=== PATIENT | female | born 1955 | race Hispanic/Latino ===

== ENCOUNTER 2016-09-10 02:51 | Inpatient (IN) | payer MEDICARE, MEDICAID ==
[2016-09-10] MEDS ORDERED: Sodium Chloride 0.9% 500 ML IV ONE (03:22)
[2016-09-10 04:13] LABS: BASO # 0.1 K/uL (0.0-0.2); BASO % 0.5 % (0.0-2.0); EOS % 0.1 % (0.0-4.0); HEMATOCRIT 36.5 % (34.0-47.0); LYMPH # 1.6 K/uL (1.0-4.3); LYMPH % 14.5 % (20.0-40.0); MEAN CORPUSCULAR HEMOGLOBIN 27.6 pg (27.0-31.0); MONO # 0.3 K/uL (0.0-0.8); MONO % 2.9 % (0.0-10.0); RED CELL DISTRIBUTION WIDTH 14.3 % (11.5-14.5); WHITE BLOOD COUNT 10.9 K/uL (4.8-10.8)
[2016-09-10 04:21] LABS: CHLORIDE 82 mmol/L (98-107)
[2016-09-10 04:22] LABS: POTASSIUM 3.6 mmol/L (3.6-5.2); SODIUM 121 mmol/L (132-148)
[2016-09-10 04:24] LABS: ALB/GLOB RATIO 0.8 (1.0-2.1); ALKALINE PHOSPHATASE 75 U/L (38-126); ALT/SGPT 27 U/L (9-52); AST/SGOT 36 U/L (14-36); BILIRUBIN,TOTAL 0.6 mg/dL (0.2-1.3); BLOOD UREA NITROGEN 7 mg/dL (7-17); CARBON DIOXIDE 24 mmol/L (22-30); GFR AFRICAN-AMERICAN > 60; TOTAL PROTEIN 8.8 g/dL (6.3-8.3)
[2016-09-10 04:25] LABS: GLUCOSE,RANDOM 125 mg/dL (65-105)
[2016-09-10 05:02] LABS: URINE BACTERIA FEW (<OCC); URINE BILIRUBIN NEGATIVE (NEGATIVE); URINE BLOOD NEGATIVE (NEGATIVE); URINE COLOR Colorless (YELLOW); URINE GLUCOSE (UA) NORMAL (Normal); URINE KETONE TRACE mg/dL (NEGATIVE); URINE LEUKOCYTE ESTERASE NEG Leu/uL (Negative); URINE PROTEIN NEGATIVE (NEGATIVE); URINE UROBILINOGEN NORMAL mg/dL (0.2-1.0); WBC URINE 3 /hpf (0-5)
--- NOTE | 2016-09-10 05:57 | C.PDOC ---
History Of Present Illness 61 y/o female c/o feeling weak and nauseous since yesterday. Patient states she had a similar episode a few years ago when she had low sodium and had a "heat stroke". Also notes diarrhea which resolved today. Denies abdominal pain, vomiting, or chest pain. Time Seen by Provider: 09/10/16 03:12 Chief Complaint (Nursing): Weakness/Neurological Deficit History Per: Patient History/Exam Limitations: no limitations Onset/Duration Of Symptoms: Days Recent travel outside of the [place]: No Past Medical History Reviewed: Historical Data, Nursing Documentation, Vital Signs Vital Signs: Last Vital Signs Temp 98.5 F 09/10/16 03:03 Pulse 90 09/10/16 03:03 Resp 20 09/10/16 03:03 BP 150/68 09/10/16 03:03 Pulse Ox 96 09/10/16 05:57 - Medical History PMH: Anxiety, HTN, Hyperlipidemia, Hypothyroidism Family History: States: Unknown Family Hx - Social History Hx Alcohol Use: No Hx Substance Use: No - Immunization History Hx Tetanus Toxoid Vaccination: No Hx Influenza Vaccination: No Hx Pneumococcal Vaccination: No Review Of Systems Except As Marked, All Systems Reviewed And Found Negative. Constitutional: Positive for: Weakness. Negative for: Fever, Chills Cardiovascular: Negative for: Chest Pain Respiratory: Negative for: Cough, Shortness of Breath, Wheezing Gastrointestinal: Positive for: Nausea. Negative for: Vomiting, Abdominal Pain Skin: Negative for: Rash Neurological: Negative for: Weakness, Numbness, Headache, Dizziness Physical Exam - Physical Exam Appears: Non-toxic, No Acute Distress Skin: Warm, Dry Head: Atraumatic, Normacephalic Eye(s): bilateral: Normal Inspection, EOMI Nose: Normal Oral Mucosa: Moist Lips: Other (dry) Throat: Normal, No Erythema, No Exudate Neck: Normal ROM, Supple Chest: Symmetrical Cardiovascular: Rhythm Regular Respiratory: Normal Breath Sounds, No Rales, No Rhonchi, No Wheezing Gastrointestinal/Abdominal: Soft, No Tenderness, No Guarding, No Rebound Back: Normal Inspection Extremity: Normal ROM, Capillary Refill (< 2 sec. ) Neurological/Psych: Oriented x3, Normal Speech, Normal Cognition ED Course And Treatment - Laboratory Results Result Diagrams: 09/10/16 04:10 09/10/16 04:10 ECG: Interpreted By Me ECG Rhythm: Sinus Rhythm Rate From EC (bpm) O2 Sat by Pulse Oximetry: 96 (RA) Pulse Ox Interpretation: Normal - CT Scan/US CT Head Other Rad Studies (CT/US): Read By Radiologist, Radiology Report Reviewed CT/US Interpretation: Name: AAYUSH XIONG Age: 61Years F Date: 09/10/2016. Requesting Physician: UNKNOWN : 1955. [facility] Procedure Ordered As Accession Number of Images. CT HEAD WO CT HEAD W O CONTRAST [id number]. Provided Clinical History: Page 1 of 2. EXAM: CT Head Without Intravenous Contrast. CLINICAL HISTORY: 61 years old, female; Pain; Headache; Headache not specified. TECHNIQUE: Axial computed tomography images of the head/brain without intravenous contrast. This CT exam. was performed using one or more of the following dose reduction techniques: automated exposure. control, adjustment of the mA and/or kV according to patient size, and/or use of iterative. reconstruction technique. COMPARISON: No relevant prior studies available. FINDINGS: Brain: Tlwx-gh-viygizgi atrophy. No intracranial hemorrhage. No mass. Few scattered subtle foci. of decreased attenuation within periventricular/subcortical white matter. No definite edema. Ventricles: No hydrocephalus. Bones/joints: No acute fracture. Soft tissues : Unremarkable. Vasculature: Minimal atherosclerotic disease of intracranial arteries. Sinuses: No acute sinusitis. Mastoid air cells: No mastoid effusion. Orbits: Unremarkable as visualized. IMPRESSION: 1. Nonspecific white matter changes. Acute infarction may be CT occult within first 24 hours. If a. focal deficit persists, consider followup CT or MRI for further evaluation. 2. Incidental/non-acute findings are described above. Progress Note: CT head, EKG, bloodwork ordered and reviewed. Treated with IVFs and Zofran. Discussed with Dr. Aguila who agreed upon admission. Disposition - Disposition Disposition: HOME/ ROUTINE Disposition Time: 05:57 Condition: STABLE - Clinical Impression Clinical Impression: Hyponatremia - PA / DIRECTOR HEART / Resident Statement / has reviewed & agrees with the documentation as recorded. - Scribe Statement The provider has reviewed the documentation as recorded by the Scribe Mark Mark All medical record entries made by the Scribe were at my direction and personally dictated by me. I have reviewed the chart and agree that the record accurately reflects my personal performance of the history, physical exam, medical decision making, and the department course for this patient. I have also personally directed, reviewed, and agree with the discharge instructions and disposition.
[2016-09-10 10:44] LABS: T4 10.5 ug/dL (5.5-11.0)
[2016-09-10 10:56] LABS: THYROID STIMULATING HORMONE 2.55 mIU/L (0.46-4.68)
--- NOTE | 2016-09-10 10:59 | CT ---
PROCEDURE: CT HEAD WITHOUT CONTRAST. HISTORY: R/O Bleed COMPARISON: None available. TECHNIQUE: Axial computed tomography images were obtained through the head/brain without intravenous contrast. Radiation dose: Total exam DLP = 875.25 mGy-cm. This CT exam was performed using one or more of the following dose reduction techniques: Automated exposure control, adjustment of the mA and/or kV according to patient size, and/or use of iterative reconstruction technique. FINDINGS: HEMORRHAGE: No acute parenchymal, subarachnoid or extra-axial hemorrhage. BRAIN: No evidence large acute infarct. Mild chronic periventricular white matter ischemic changes with a few scattered chronic bilateral basal nuclei lacunar type infarcts right side more conspicuous and somewhat larger than left. . There is disproportion enlargement of the ventricles compared sulci Vascular calcifications are present. VENTRICLES: There is dilatation of the third and lateral ventricles with normal-appearing 4th ventricle compared the sulci. Findings may represent central volume loss. NPH of could considered only if the clinical triad of dementia, ataxia and incontinence present. Possibility of chronic compensated obstructive hydrocephalus cannot be excluded. CALVARIUM: No acute calvarial fractures. . PARANASAL SINUSES: Frontal sinuses are underpneumatized/ hypoplastic. Remaining visualized paranasal sinuses well-developed. There may be some minimal mucosal thickening within a few ethmoid air cells. No fluid levels seen to suggest sinusitis MASTOID AIR CELLS: Unremarkable as visualized. No inflammatory changes. OTHER FINDINGS: Findings suggesting exophthalmos however clinical correlation with ophthalmologic examination recommended. IMPRESSION: No acute intracranial hemorrhage. No evidence of large infarct. Mild chronic white matter ischemic changes with bilateral basal nuclei lacunar type infarcts. Note that acute infarct may be CT occult within the 1st 24 hours. Focal deficits persist, consist consider followup MRI. Dilatation of 3rd and lateral ventricles with dilatation of the 4th ventricle. Loss findings could be secondary to central volume loss however chronic compensated obstructive hydrocephalus to be excluded. NPH to be considered only if clinical triad of dementia, ataxia and incontinence present. . See above discussion for additional details, findings and recommendations. Findings suggest exophthalmos however clinical correlation with ophthalmologic examination recommended.
--- NOTE | 2016-09-10 11:38 | RAD ---
PROCEDURE: CHEST RADIOGRAPH, 1 VIEW HISTORY: Shortness of breath COMPARISON: 09/10/2016 FINDINGS: LUNGS: Moderate venous congestion. Mild right midlung atelectasis. Mild patchy increased markings at the right lung base. PLEURA: No pneumothorax or pleural fluid seen. CARDIOVASCULAR: Cardiomegaly. OSSEOUS STRUCTURES: Degenerative changes in the spine and shoulders. Foreshortening of the distal left clavicle. VISUALIZED UPPER ABDOMEN: Normal. OTHER FINDINGS: None. IMPRESSION: Moderate venous congestion. Mild right midlung atelectasis. Mild patchy increased markings at the right lung base.
--- NOTE | 2016-09-10 12:09 | CP.PCM.CON ---
History of Present Illness - History of Present Illness History of Present Illness: pt seen and examined, full consult is dictated #[id number] vs sec to thiazide diuretics agree with ns, f/u bmp q 8 hrs check urine na, osm u osm uric acid, cortisol, tsh level Past Patient History - Infectious Disease Hx of Infectious Diseases: None - Past Medical History & Family History Past Medical History?: Yes - Past Social History Smoking Status: Former Smoker - CARDIAC Hx Hypertension: Yes - ENDOCRINE/METABOLIC Hx Hypothyroidism: Yes - MUSCULOSKELETAL/RHEUMATOLOGICAL Hx Falls: No - PSYCHIATRIC Hx Substance Use: No - SURGICAL HISTORY Hx Orthopedic Surgery: Yes (left rotator cuff repair) - ANESTHESIA Hx Anesthesia: Yes Hx Anesthesia Reactions: No Meds Allergies/Adverse Reactions: Allergies Allergy/AdvReac Type Severity Reaction Status Date / Time procaine [From Novocain] AdvReac Verified 09/10/16 03:07 - Medications Medications: Current Medications Aspirin (Ecotrin) 81 mg PO DAILY LEONELA Sodium Chloride (Sodium Chloride 0.9%) 1,000 mls @ 80 mls/hr IV .[id number] LEONELA Levothyroxine Sodium (Synthroid) 50 mcg PO 0630 LEONELA Lorazepam (Ativan) 2 mg PO DAILY LEONELA Rosuvastatin Calcium (Crestor) 5 mg PO HS LEONELA Results - Vital Signs Recent Vital Signs: Last Vital Signs Temp 98.8 F 09/10/16 06:51 Pulse 92 H 09/10/16 06:51 Resp 20 09/10/16 06:51 BP 152/85 H 09/10/16 06:51 Pulse Ox 96 09/10/16 06:51 - Labs Result Diagrams: 09/10/16 04:10 09/10/16 04:10
[2016-09-10] MEDS: Sodium Chloride 0.9% 1,000 ML IV SCH (12:10)
--- NOTE | 2016-09-10 15:42 | CON ---
DATE: 09/10/2016 CHIEF COMPLAINT AND REASON FOR CONSULTATION: The patient referred by Dr. Aguila for evaluation as patient has history of depression, anxiety. The patient has been taking Zoloft and Ativan at home. The patient was admitted here for weakness and nausea. The patient was noted to have very low sodium on admission. Her last sodium was 121. HISTORY OF PRESENT ILLNESS: This is the case of a 61-year-old female with long history of depression, anxiety. The patient has been taking Zoloft as well as Ativan, initially prescribed by Dr. Reis from [facility]. The patient states she has been taking her medication for years; however, patient reports that physically she has been feeling weak and nauseous and that she thought she had a heat stroke. The patient also reports she has been drinking a lot of water and also was taking some diuretics at home. The patient on admission was noted to have very low sodium and admitted for hyponatremia. She states that she has history of depression. She was seen by a psychiatrist when she was in [place] and was given Abilify, which she self- tapered, but now on Zoloft 50 mg daily and also Ativan 2 mg at bedtime to help her anxiety as well as to help her sleep. She has been compliant with her meds. She stated that she has been drinking a lot of water as well as taking diuretics at home. PAST PSYCHIATRIC HISTORY: As stated, history of depression and anxiety on Zoloft and Ativan. MEDICAL HISTORY: As stated, history of thyroid problems, history of hypothyroidism, hyperlipidemia. DRUG AND ALCOHOL HISTORY: Denies any. ALLERGIES: THE PATIENT IS ALLERGIC TO NOVOCAIN. PSYCHOSOCIAL HISTORY: The patient lives in a senior citizen building. She has been disabled secondary to depression. 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 CURRENT MEDICATIONS: The patient is currently on Ativan 2 mg daily, Crestor, Ecotrin, and Synthroid. VITAL SIGNS: Temperature is 98.8, pulse is 92, blood pressure 140/80, respirations 20, oxygen saturation is 96%. IMAGING: The patient had a CAT scan of the head done on admission that showed no acute intracranial hemorrhage or infarct. The patient has dilatation of the 3rd and lateral ventricle with dilatation of 4th ventricle. Those findings could be secondary to extensive volume loss; however, chronic compensated obstructive hydrocephalus to be excluded. NPH to be considered only there is a triad of dementia, ataxia and incontinence. The patient does not have the symptoms. The findings also suggest exophthalmos. However, correlate with clinical correlation. Neurologic exam recommended. 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 REVIEW OF SYSTEMS: GENERAL: The patient is alert and oriented x 3. Very anxious, when seen in her room, and she stated also that she is drinking a lot water and drinking tea. The patient is cooperative. She was asking how long will she stay in the hospital. SKIN: No diaphoresis. HEENT: No headache. No blurring of vision. NECK: Supple. RESPIRATORY: No dyspnea. CARDIOVASCULAR: No chest pain. GASTROINTESTINAL: She is eating better. EXTREMITIES: No tremors. MUSCULOSKELETAL: Feels weak. GENITOURINARY: Not complaining of polyuria. NEUROLOGIC: Alert and oriented x 3. LABORATORY DATA: Review of her labs WBC is 10.9, H and H is 12.4/36.5, sodium is 121, potassium is 3.6, BUN 7, creatinine is 0.5. T4 is 10.5, total T3 is 1.46. UA is few urinary bacteria. MENTAL STATUS EXAMINATION: Elderly female who looks stated age, oriented x 3. Mood is anxious, somatic. Affect is reactive. Speech spontaneous. Thought process coherent. Thought content: No paranoia, no hallucinations. No suicidal or homicidal ideation. Attention and memory seem to be fair. Insight and judgment fair. Impulse control is fair. IMPRESSION: History of recurrent depression and anxiety as well as possible syndrome of inappropriate antidiuretic hormone secretion, probably secondary to her diuretic versus her SSRI. Zoloft can cause SIADH as a side effect. The patient has been taking this for years. PLAN AND RECOMMENDATION: The patient seen, meds reviewed. The patient referred to be seen by a law office receptionist, Dr. Redmond. Psych-herr, I will change her Ativan to 2 mg p.o. daily to 2 mg p.o. at bedtime, which the patient usually takes at home. For now, we will keep patient off of Zoloft. I did discuss with her that because of her low sodium, we will try to keep her off the Zoloft for now. The patient is not depressed, but also states that she just wants for now to keep her Ativan 2 mg at bedtime. Thank you very much for the consult. Chip Huynh MD cc: [id number] TT: 09/10/2016 15:41:14 Confirmation # [id number] Dictation # [id number] wolf FULTON
--- NOTE | 2016-09-10 22:27 | HP ---
The patient is a 61-year-old female with a history of an anxiety disorder and hypothyroidism and hype rtension. The patient comes to the Emergency Room because the patient feels very weak and also was n ervous. The patient stated that she got a similar episode a few years back and was found to have ___ __. Also, the patient stated that she was had a heatstroke. So, the patient got was evaluated in [facility] Emergency Room and the patient was admitted because of abnormal electrolytes ALLERGIES: THE PATIENT HAS NO KNOWN ALLERGIES EXCEPT ____. MEDICATIONS: The patient was medications including levothyroxine, and also the patient was on alpraz olam and Zoloft. SOCIAL HISTORY: No smoking or alcohol abuse. FAMILY HISTORY: No inherited disease. REVIEW OF SYSTEMS: RESPIRATORY: The patient denied any shortness of breath. CARDIOVASCULAR: The patient is having some palpitations at times. GASTROINTESTINAL: No nausea or vomiting. GENITOURINARY: No dysuria. NEUROLOGIC: The patient feels weak. PHYSICAL EXAMINATION: GENERAL: The patient is alert, awake, and oriented x 3. VITAL SIGNS: Has a blood pressure of 115/79, pulse 93, respirations 16, temperature 97.7. NECK: Supple. No JVD. LUNGS: Clear. HEART: Regular rate and rhythm. ABDOMEN: Soft, obese, nontender, no palpable mass. EXTREMITIES: There is no edema. NEUROLOGIC: The patient is alert and awake, has motor and sensory deficit. LABORATORY DATA: The patient had blood tests done. WBC is 10.9, hemoglobin 12.4, hematocrit 37.5 an d platelet is 340. Chemistry: Sodium 121, potassium 3.6, chloride 82, bicarbonate 24, BUN 7, creati nine 0.5, calcium 9, AST 36, ALT 27, alk phos is 75. Troponin is less than 0.012. Albumin 4, 4.8. T4 is 10.5, TSH 2.55 and T3 is 1.46. ADMITTING DIAGNOSES: Severe hyponatremia and an anxiety disorder, so the patient will have a consult with Dr. Redmond, renal, and psychiatric consult with Dr. Huynh. ADDENDUM: The EKG was done and showed a normal sinus rhythm at a rate of 90 and . There was __ ___ appeared to be a prolonged QT. So, we are going to discontinue the Zoloft. Bro Aguila MD cc: [id number] TT: 09/10/2016 22:26:36 wolf
[2016-09-11] MEDS: Sodium Chloride 0.9% 1,000 ML IV SCH ×2 (01:00→14:00)
[2016-09-11] MEDS: Levothyroxine 50 MCG TAB PO SCH (05:32)
[2016-09-11 07:19] LABS: CHLORIDE 97 mmol/L (98-107)
[2016-09-11 07:20] LABS: POTASSIUM 3.3 mmol/L (3.6-5.2); SODIUM 135 mmol/L (132-148)
[2016-09-11 07:22] LABS: CARBON DIOXIDE 29 mmol/L (22-30); GFR AFRICAN-AMERICAN > 60
[2016-09-11 07:23] LABS: BLOOD UREA NITROGEN 11 mg/dL (7-17); CALCIUM 9.1 mg/dl (8.6-10.4); GLUCOSE,RANDOM 91 mg/dL (65-105)
[2016-09-11 07:53] LABS: CORTISOL AM 3.4 ug/dL (4.46-22.7); THYROID STIMULATING HORMONE 3.42 mIU/L (0.46-4.68)
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
[2016-09-11] MEDS ORDERED: Potassium Chloride 20 mEq/15 ml LIQ UD PO ONE (10:00)
--- NOTE | 2016-09-11 10:12 | CP.PCM.PN ---
Subjective - Date & Time of Evaluation Date of Evaluation: 09/11/16 Time of Evaluation: 10:11 - Subjective Subjective: pt seen and examined, follow up consult is dictated #[id number] serum na is 135, d/c ivf add mg level, agree with k+ supplement low serm cortisol, r/o adrenal insufficiency, may need acth stimulation test please request endo consult Objective - Vital Signs/Intake and Output Vital Signs (last 24 hours): Temp Pulse Resp BP Pulse Ox 98.4 F 65 20 110/66 96 09/11/16 07:00 09/11/16 07:00 09/11/16 07:00 09/11/16 07:00 09/11/16 07:00 Intake and Output: 09/11/16 09/11/16 06:59 18:59 Intake Total 960 Balance 960 - Medications Medications: Current Medications Aspirin (Ecotrin) 81 mg PO DAILY LEONELA Atenolol (Tenormin) 50 mg PO DAILY [facility] Last Admin: 09/10/16 18:30 Dose: 50 mg Heparin Sodium (Porcine) (Heparin) 5,000 units SC Q12 LEONELA Sodium Chloride (Sodium Chloride 0.9%) 1,000 mls @ 80 mls/hr IV .[id number] [facility] Last Admin: 09/11/16 01:00 Dose: 80 mls/hr Levothyroxine Sodium (Synthroid) 50 mcg PO 0630 LEONELA Last Admin: 09/11/16 05:32 Dose: 50 mcg Lorazepam (Ativan) 2 mg PO HS [facility] Last Admin: 09/10/16 22:10 Dose: 2 mg Rosuvastatin Calcium (Crestor) 5 mg PO HS [facility] - Labs Labs: 09/11/16 06:58
--- NOTE | 2016-09-11 11:36 | PN ---
DATE: 09/11/2016 The patient is located in room 664, bed A. REQUESTED BY: Dr. Bro Aguila. REASON FOR RENAL CONSULTATION: Hyponatremia, hypokalemia for evaluation. HISTORY OF PRESENT ILLNESS: The patient is a 61-year-old elderly female with history of hypertension , hyperlipidemia, hypothyroidism, anxiety, depression, was admitted with nausea, vomiting, diarrhea a few days prior to the admission and found to have a low serum sodium 121. The patient was started o n IV fluids, normal saline and with improvement of serum sodium today. Denies any complaint, no ches t pain, no palpitations, no fever, no cough, no abdominal pain, no nausea, vomiting, diarrhea. PHYSICAL EXAMINATION: VITAL SIGNS: This morning as follows: Blood pressure 110/66, pulse 65, respirations 20, temperature 98.4, saturation 96%, height 5 feet 1 inch, weight 190 pounds. GENERAL: The patient is a 61-year-old elderly female, well built, well nourished, not in acute distr ess. HEENT: Pupils normal, reactive to light and accommodation. Conjunctivae pink. Sclerae anicteric. Tongue is moist. NECK: Trachea is midline. LUNGS: Symmetric on both sides. Bilateral breath sounds present. Clear on auscultation. CARDIOVASCULAR: [place] at the fifth intercostal space midclavicular line. S1 and S2 audible. No murm ur, no gallop. ABDOMEN: Normal in appearance, soft, tympanic. No guarding, no rigidity. No hepatosplenomegaly. CENTRAL NERVOUS SYSTEM: The patient is alert, awake, oriented x 3, nonfocal on examination. Cranial nerves II-XII grossly intact. Sensory and motor system is within normal limits. EXTREMITIES: No cyanosis, no clubbing, no edema. CURRENT MEDICATIONS: Include as follows: Ativan 2 mg p.o. at bedtime, Crestor 5 mg at bedtime, Ecot rin 81 mg daily, subQ heparin 5000 q. 12 hours, IV fluids, normal saline at 80 mL per hour, Synthroid 50 mcg p.o. daily and Tenormin 50 mg p.o. daily, KCl 40 mEq p.o. x 1 given this morning at 10:00. LABORATORY DATA: Include as follows: As of 09/11/2016, sodium 135, potassium 3.3, chloride 97, CO2 of 29, BUN 11, creatinine 0.6, glucose 91. Uric acid 5 and calcium 9.1 and TSH is 3.42 and serum cor tisol is 3.4. SUMMARY: The patient is a 61-year-old elderly female with a history of hypertension, hypothyroidism, hyperlipidemia and anxiety, who was admitted with nausea, vomiting, diarrhea and low serum sodium, s tarted on IV fluids with improvement in serum sodium and low potassium and now workup has serum corti akshat level 3.4. 1. Hyponatremia, most likely secondary to hypotonic hypovolemic hyponatremia, cannot rule out adrena l insufficiency in the setting of low serum cortisol, doubt syndrome of inappropriate antidiuretic ho rmone. Cannot rule out secondary to thiazide diuretics. Agree with potassium supplement and conside r endocrinology consult prior to the discharge regarding serum cortisol low levels and the patient kiley y need ACTH stimulation test Please request endocrinology consult. Thank you for allowing me to participate in your patient's care and monitor BMP and potassium and add magnesium level also. Marciano Redmond MD cc: [id number] TT: 09/11/2016 11:36:25 Confirmation # [id number] Dictation # [id number] tn
--- NOTE | 2016-09-11 15:59 | PN ---
DATE: 09/11/2016 SUBJECTIVE: The patient is seen. The patient is feeling better today, less anxious. Her last sodiu m level was much better 135, potassium however a little low 3.3. The patient is anxious to be discha rged. The patient is currently taking Ativan 2 mg at bedtime. The patient made aware to monitor for signs and symptoms of serotonin withdrawal as patient has been on Zoloft for many years; such as aspen rrhea, restlessness, insomnia. The patient is not exhibiting any kind of signs or symptoms of seroto rhiannon withdrawal syndrome. VITAL SIGNS: Temperature is 98.4, pulse is 65, blood pressure 110/66, respirations 20, oxygen sats 9 6%. REVIEW OF SYSTEMS: GENERAL: The patient is alert and oriented x 3, seen in her room. SKIN: No diaphoresis. HEENT: No headache, no dizziness. NECK: Supple. RESPIRATORY: No dyspnea. CARDIOVASCULAR: No chest pain. GASTROINTESTINAL: No nausea, no vomiting, no diarrhea. EXTREMITIES: The patient moving extremities. MUSCULOSKELETAL: Weakness, improving. NEUROLOGIC: Alert, oriented x 3. GENITOURINARY: No urinary problems. MENTAL STATUS EXAMINATION: Elderly female who looks stated age, oriented x 3. Speech spontaneous. Affect is reactive. Mood is anxious at times. Thought process coherent. Thought content: No psych osis. No suicidal or homicidal ideation. Attention and memory seem to be fair. Insight and judgmen t fair. Impulse control is fair. IMPRESSION: History of recurrent depression, anxiety as well as hypernatremia. PLAN AND RECOMMENDATIONS: The patient seen, meds reviewed. We will continue Ativan 2 mg at bedtime. We will keep patient off Zoloft for now. Psych herr, the patient is cleared to be discharged to [facility] and to follow up with Dr. Aguila once medically cleared. I did advise the patient to monitor fo r signs and symptoms of serotonin withdrawal as the patient has been on an SSRI for a long time, but patient reports none of them when seen. Chip Huynh MD cc: [phone] TT: 09/11/2016 15:58:46 Confirmation # [id number] Dictation # [id number] jn
--- NOTE | 2016-09-11 22:02 | CARD ---
APPROVED REPORT EKG Measurement Heart [id number] VT [id number] [id number] <Conclusion> Normal sinus rhythm Left axis deviation Prolonged QT Abnormal ECG
--- NOTE | 2016-09-11 22:53 | PN ---
DATE: 09/11/2016 Today, the patient is more alert and awake and denies any shortness of breath, no chest pain, no palp itation. The patient and less weak. PHYSICAL EXAMINATION: VITAL SIGNS: Has a blood pressure of 110/80, pulse rate 55, respiration of 18, temperature 97.8. NECK: Supple. No JVD. LUNGS: Clear. HEART: Regular rate and rhythm. ABDOMEN: Soft, obese, nontender, no palpable mass. EXTREMITIES: There is no edema. LABORATORY DATA: The patient blood work today shows the WBC is 10.9, hemoglobin , hematocrit __ ___, and platelets 340. Sodium 135, potassium 3.3. Chloride 97, bicarbonate 29, BUN 11, creatinine 0.6 and 92 is the glucose. PLAN: Is that we will sodium replacement and potassium replacement. Bro Aguila MD cc: [id number] TT: 09/11/2016 22:53:29 Confirmation # [id number] Dictation # [id number] mn
[2016-09-12] MEDS: Sodium Chloride 0.9% 1,000 ML IV SCH ×2 (01:00→02:52)
[2016-09-12 06:01] LABS: CHLORIDE 95 mmol/L (98-107); POTASSIUM 3.9 mmol/L (3.6-5.2); SODIUM 133 mmol/L (132-148)
[2016-09-12 06:04] LABS: GFR AFRICAN-AMERICAN > 60
[2016-09-12 06:05] LABS: BLOOD UREA NITROGEN 15 mg/dL (7-17); CALCIUM 8.4 mg/dl (8.6-10.4); CARBON DIOXIDE 27 mmol/L (22-30); GLUCOSE,RANDOM 100 mg/dL (65-105)
[2016-09-12] MEDS: Levothyroxine 50 MCG TAB PO SCH (07:51)
[2016-09-12 08:34] LABS: CHLORIDE URINE 72 mmol/L (32-290)
--- NOTE | 2016-09-12 20:36 | PN ---
DATE: 09/12/2016 SUBJECTIVE: Today, the patient is alert and awake, no shortness of breath, no chest pain, no dizzine ss. PHYSICAL EXAMINATION: VITAL SIGNS: The patient has a blood pressure of 135/83, pulse rate is 73, respirations 20, temperat ure 98.6. NECK: Supple. No JVD. LUNGS: Clear. HEART: Regular rate and rhythm. ABDOMEN: Soft and obese. EXTREMITIES: There is no edema. The patient's blood pressure today is 135/83. LABORATORY DATA: Showed sodium 133, potassium 3.9, chloride 95, BUN , creatinine 0.7, calcium 8 .4. PLAN: Continue current medications and possibly discharge in the morning. Bro Aguila MD cc: [id number] TT: 09/12/2016 20:36:07 Confirmation # [id number] Dictation # [id number] mn
[2016-09-13 00:51] VITALS: O2SAT 97
[2016-09-13] MEDS: Sodium Chloride 0.9% 1,000 ML IV SCH ×2 (02:00→05:33)
[2016-09-13] MEDS: Levothyroxine 50 MCG TAB PO SCH (06:32)
[2016-09-13 07:30] LABS: BASO # 0.1 K/uL (0.0-0.2); BASO % 0.7 % (0.0-2.0); EOS # 0.2 K/uL (0.0-0.7); EOS % 2.3 % (0.0-4.0); HEMATOCRIT 34.6 % (34.0-47.0); LYMPH # 2.5 K/uL (1.0-4.3); LYMPH % 26.3 % (20.0-40.0); MEAN CORPUSCULAR HEMOGLOBIN 27.8 pg (27.0-31.0); MEAN CORPUSCULAR HGB CONC 33.3 g/dL (33.0-37.0); MEAN PLATELET VOLUME 8.6 fL (7.2-11.7); MONO # 0.4 K/uL (0.0-0.8); MONO % 4.5 % (0.0-10.0); NRBC % 0.1 % (0.0-2.0); RED CELL DISTRIBUTION WIDTH 14.5 % (11.5-14.5); WHITE BLOOD COUNT 9.4 K/uL (4.8-10.8)
[2016-09-13 07:36] LABS: CHLORIDE 95 mmol/L (98-107); SODIUM 133 mmol/L (132-148)
[2016-09-13 07:37] LABS: POTASSIUM 3.7 mmol/L (3.6-5.2)
[2016-09-13 07:39] LABS: ALB/GLOB RATIO 0.9 (1.0-2.1); ALKALINE PHOSPHATASE 63 U/L (38-126); AST/SGOT 21 U/L (14-36); BILIRUBIN,TOTAL 0.5 mg/dL (0.2-1.3); BLOOD UREA NITROGEN 12 mg/dL (7-17); CALCIUM 7.9 mg/dl (8.6-10.4); CARBON DIOXIDE 27 mmol/L (22-30); GFR AFRICAN-AMERICAN > 60; GLUCOSE,RANDOM 88 mg/dL (65-105); TOTAL PROTEIN 7.5 g/dL (6.3-8.3)
[2016-09-13 07:40] LABS: ALT/SGPT 20 U/L (9-52)
[2016-09-13 07:42] LABS: MEAN CELL VOLUME 83.5 fL (81.0-99.0)
[2016-09-13 08:57] VITALS: BP 118/58; PULSE 80; RESP 18; TEMP 98.4
--- NOTE | 2016-09-13 10:11 | CP.PCM.PN ---
Subjective - Date & Time of Evaluation Date of Evaluation: 09/13/16 Time of Evaluation: 10:11 - Subjective Subjective: pt seen and examined, follow up consult is dictated #[id number] low serum cortisol level, r/o adrenal insufficiency f/u with endo Objective - Vital Signs/Intake and Output Vital Signs (last 24 hours): Temp Pulse Resp BP Pulse Ox 98.4 F 80 18 118/58 L 97 09/13/16 07:40 09/13/16 07:40 09/13/16 07:40 09/13/16 07:40 09/13/16 07:40 Intake and Output: 09/13/16 09/13/16 06:59 18:59 Intake Total 640 Balance 640 - Medications Medications: Current Medications Aspirin (Ecotrin) 81 mg PO DAILY [facility] Last Admin: 09/13/16 09:33 Dose: 81 mg Atenolol (Tenormin) 50 mg PO DAILY [facility] Last Admin: 09/13/16 09:33 Dose: 50 mg Heparin Sodium (Porcine) (Heparin) 5,000 units SC Q12 [facility] Last Admin: 09/13/16 09:33 Dose: Not Given Sodium Chloride (Sodium Chloride 0.9%) 1,000 mls @ 80 mls/hr IV .[id number] [facility] Last Admin: 09/13/16 05:33 Dose: 80 mls/hr Levothyroxine Sodium (Synthroid) 50 mcg PO 0630 [facility] Last Admin: 09/13/16 06:32 Dose: 50 mcg Lorazepam (Ativan) 2 mg PO HS [facility] Last Admin: 09/12/16 22:14 Dose: 2 mg Rosuvastatin Calcium (Crestor) 5 mg PO HS [facility] Last Admin: 09/12/16 22:14 Dose: 5 mg - Labs Labs: 09/13/16 07:14 09/13/16 07:14
--- NOTE | 2016-09-13 12:18 | CP.PCM.PN ---
Subjective - Date & Time of Evaluation Date of Evaluation: 09/13/16 Time of Evaluation: 10:40 - Subjective Subjective: pt seen and examined today , states feels better, denies any chest pain, sob, dizziness, excessive thirst , dysuria vss- stable Na- improved - 133 Objective - Vital Signs/Intake and Output Vital Signs (last 24 hours): Temp Pulse Resp BP Pulse Ox 98.4 F 80 18 118/58 L 97 09/13/16 07:40 09/13/16 07:40 09/13/16 07:40 09/13/16 07:40 09/13/16 07:40 Intake and Output: 09/13/16 09/13/16 06:59 18:59 Intake Total 640 Balance 640 - Medications Medications: Current Medications Aspirin (Ecotrin) 81 mg PO DAILY [facility] Last Admin: 09/13/16 09:33 Dose: 81 mg Atenolol (Tenormin) 50 mg PO DAILY [facility] Last Admin: 09/13/16 09:33 Dose: 50 mg Heparin Sodium (Porcine) (Heparin) 5,000 units SC Q12 [facility] Last Admin: 09/13/16 09:33 Dose: Not Given Sodium Chloride (Sodium Chloride 0.9%) 1,000 mls @ 80 mls/hr IV .[id number] [facility] Last Admin: 09/13/16 05:33 Dose: 80 mls/hr Levothyroxine Sodium (Synthroid) 50 mcg PO 0630 [facility] Last Admin: 09/13/16 06:32 Dose: 50 mcg Lorazepam (Ativan) 2 mg PO [facility] Last Admin: 09/12/16 22:14 Dose: 2 mg Rosuvastatin Calcium (Crestor) 5 mg PO [facility] Last Admin: 09/12/16 22:14 Dose: 5 mg - Labs Labs: 09/13/16 07:14 09/13/16 07:14 - Constitutional Appears: Well, Non-toxic, No Acute Distress - ENT Exam ENT Exam: Mucous Membranes Moist - Respiratory Exam Respiratory Exam: Clear to Ausculation Bilateral, NORMAL BREATHING PATTERN - Cardiovascular Exam Cardiovascular Exam: REGULAR RHYTHM, +S1, +S2 - Neurological Exam Neurological Exam: Alert, Oriented x3 Assessment and Plan - Assessment and Plan (Free Text) Assessment: A/P 61 yr old female admitted for dehydration, hyponatremia Na improved- 133 all other labs WNL seen by Dr. Aguila today ,cleared for discharge home today and f/u with Dr. Aguila office next Further work up will be done as outpt Pt instructed to stop taking zoloft secondary to hyponatremia Pt instructed to returns to ED if symptoms returns
--- NOTE | 2016-09-13 15:52 | PN ---
DATE: 09/13/2016 SUBJECTIVE: The patient is seen, will be going home today. Her sodium level has been stable. The l ast level was 133. The patient also reports no signs and symptoms of serotonin withdrawal symptoms. She is doing well on Ativan 2 mg at bedtime. 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 The patient is anxious to be discharged and doing well, to follow up with Dr. Aguila. VITAL SIGNS: Temperature is 98.4, pulse rate is 80, blood pressure 118/58, respirations 18, oxygen s at is 97% on room air. REVIEW OF SYSTEMS: GENERAL: The patient is alert, oriented x 3, seen in her room, dressing up for discharge. SKIN: No diaphoresis. HEENT: No headache, no dizziness. NECK: Supple. RESPIRATORY: No dyspnea. CARDIOVASCULAR: No chest pain. GASTROINTESTINAL: No nausea, no vomiting. EXTREMITIES: No weakness. NEUROLOGIC: Alert, oriented x 3. GENITOURINARY: No dysuria. MENTAL STATUS EXAMINATION: Elderly female who looks stated age, oriented x 3. Mood is anxious at ti mes. Affect is reactive. Speech spontaneous. Thought process coherent. Thought content: No psych osis. No suicidal or homicidal ideation. Attention and memory seem to be fair. Insight and judgmen t fair. Impulse control is fair. IMPRESSION: History of recurrent depression and anxiety as well as hyponatremia possibly secondary t o syndrome of inappropriate antidiuretic hormone secondary to Zoloft as well. PLAN AND RECOMMENDATIONS: The patient seen, meds reviewed. The patient is stable for discharge to [facility] up with her PMD, Dr. Aguila. The patient to stay away from SSRI in the future as well as to continue Ativan 2 mg at bedtime. Chip Huynh MD cc: [phone] TT: 09/13/2016 15:51:44 Confirmation # [id number] Dictation # [id number]
--- NOTE | 2016-09-13 18:36 | PN ---
DATE: 09/13/2016 HISTORY OF PRESENT ILLNESS: Today, the patient was seen earlier. The patient was alert, awake , oriented x 3 and denied any shortness of breath, no chest pain, no dizziness, no palpitations, no a bdominal pain. PHYSICAL EXAMINATION: VITAL SIGNS: The patient has a blood pressure of 118/68, pulse 80, respirations 18, temperature 98.4 . NECK: Supple, no JVD. LUNGS: Clear. HEART: Regular rate and rhythm. Abdomen is soft, nontender, no palpable mass. EXTREMITIES: There is no edema. LABORATORY DATA: It showed that the WBC is 9.4, hemoglobin 11.5, hematocrit 34.6 and platelet 291. Chemistry reveals that the uric acid is 7.9 and 0.5. ALT is 21, AST , and so albumin is 4 and is 0.9. PLAN: We are going to continue on the medications, but the patient will be added allopurinol. Bro Aguila MD cc: [id number] TT: 09/13/2016 18:36:24 Confirmation # [id number] Dictation # [id number] mn
--- NOTE | 2016-09-13 18:43 | DS ---
The patient is a 61-year-old female with history of major depression, hypothyroidism. The patient ca me to the Emergency Room ____ complaining of generalized weakness and patient was found to have a maurilio y low sodium and after patient had been in [place] for a while. PHYSICAL EXAMINATION: GENERAL: Almost unremarkable except the heart rate was a little faster than usual. NECK: Supple. LUNGS: Clear. HEART: Regular rate and rhythm. ABDOMEN: Soft obese. EXTREMITIES: There is no edema, but the patient is obese. LABORATORY DATA: The first sodium was 121, potassium 2.6, chloride is 82, and bicarbonate is 24, BUN 7, creatinine 0.5. So patient will be admitted to telemetry and have a consult with Dr. Redmond, the ____ physician . The patient has IV fluid. Now the patient is comfortable. The sodium is 134 and patient ____ dis charged home. Bro Aguila MD cc: [id number] TT: 09/13/2016 18:42:22 adelita
--- NOTE | 2016-09-14 00:41 | PN ---
DATE: 09/13/2016 The patient is located in room 664, bed A. REQUESTED BY: Dr. Bro Aguila. REASON FOR RENAL CONSULTATION: Hyponatremia for further evaluation. HISTORY OF PRESENT ILLNESS: The patient is a 61-year-old elderly female with a past medica l history significant for hypertension, hyperlipidemia, anxiety, hypothyroidism, [facility] of nausea, vomiting, and diarrhea for 2-3 days prior to the admission and found to hav e a low serum sodium and the patient was found to have hyponatremia possibly secondary to hypotonic h ypovolemic hyponatremia. Cannot rule out syndrome of inappropriate antidiuretic hormone and started on IV fluid with gradual improvement in the serum sodium. The patient is feeling better, not in acut e distress and denies any headache, dizziness. Denies any chest pain, palpitations. Denies any feve r or cough. No abdominal pain, no nausea, vomiting, diarrhea. PHYSICAL EXAMINATION: VITAL SIGNS: This morning as follows: Blood pressure 118/58, pulse 80, respirations 18, temperature 98.4, saturation 97%, height 5 feet 1 inch and weight is 190 pounds. GENERAL: The patient is a 61-year-old elderly obese female, well built, well nourished, not in acute distress. HEENT: Pupils normal, reactive to light and accommodation. Conjunctivae pink. Sclerae anicteric. Tongue is moist. NECK: Trachea is midline. LUNGS: Symmetric on both sides. Bilateral breath sounds present. Clear on auscultation. CARDIOVASCULAR: [place] in the fifth intercostal space midclavicular line. S1 and S2 audible. No murm ur, no gallop. ABDOMEN: Normal in appearance, slightly protuberant, soft, tympanic. No guarding, no rigidity. No hepatosplenomegaly. CENTRAL NERVOUS SYSTEM: The patient is alert, awake, oriented x 3, anxious. Cranial nerves II-XII g rossly intact. Sensory and motor system is within normal limits. EXTREMITIES: No cyanosis, no clubbing, no edema. CURRENT MEDICATIONS: Include as follows: Ativan 2 mg p.o. q. at bedtime, Crestor 5 mg at bedtime, E cotrin 81 mg daily, subcutaneous heparin 5000 q. 12 hours and IV fluids normal saline at 80 mL per ho ur, Synthroid 50 mcg p.o. in the morning and atenolol 50 mg p.o. daily. LABORATORY DATA: Include as follows: As of 09/13/2016, WBC 9.4, hemoglobin 11.5, hematocrit is 34.6 , platelets 291. Sodium 133, potassium 3.7, chloride 95, CO2 of 27, BUN 12, creatinine 0.5, glucose 88, calcium 7.9, total bili 0.5, AST 21, ALT 20, alkaline phosphatase 63, total protein 7.5, albumin is 3.5. TSH is 3.4 and serum cortisol is 3.4. SUMMARY: The patient is a 61-year-old elderly obese female with a history of hypertension, hypothyroidism, hyperlipidemia, anxiety, depression who was on atenolol chlorthalidone and , wh o was admitted with nausea, vomiting, abdominal discomfort and diarrhea 2-3 days prior to the admissi on with a low serum sodium. 1. Hyponatremia, most likely secondary to hypotonic hypovolemic hyponatremia secondary to gastrointe stinal loss, cannot rule out secondary to diuretic induced hyponatremia versus SIADH. Serum so dium improved gradually with normal saline IV fluids. Workup showed a low serum cortisol level, alphonso ot rule out cortisol deficiency. 2. Hypertension. Blood pressure is stable. 3. Hypothyroidism. TSH is within normal limits. Continue Synthroid and follow with endocrinology f or evaluation of the adrenal insufficiency. Discuss the case with nurse practitioner in rounds and a lso with Dr. Aguila in rounds. Thank you for allowing me to participate in your patient's care. Follow with endocrinology. Marciano Redmond MD cc: [phone] TT: 09/14/2016 00:41:06 Confirmation # [id number] Dictation # [id number] mn
== END 2016-09-13 14:00 | disposition home or self-care (01) | DRG 641 ==
LOC: C.ER 02:51 → C.3T 05:57 → OBSVTOIN 17:20 → C.6T 19:06
PROVIDERS: ADMIT Specialist; ATTEND Specialist
DX: E87.1 Hypo-osmolality and hyponatremia (principal); E86.0 Dehydration; F33.9 Major depressive disorder, recurrent, unspecified; I10 Essential (primary) hypertension; E03.9 Hypothyroidism, unspecified; E78.5 Hyperlipidemia, unspecified; T50.2X5A Adverse effect of carbonic-anhydrase inhibitors, benzothiadiazides and other diuretics, initial encounter; F41.9 Anxiety disorder, unspecified; Z79.899 Other long term (current) drug therapy; Z86.73 Personal history of transient ischemic attack (TIA), and cerebral infarction without residual deficits; Z87.891 Personal history of nicotine dependence

== ENCOUNTER 2017-06-17 03:04 | Emergency (ER) | payer MEDICAID, MEDICARE ==
--- NOTE | 2017-06-17 04:04 | C.PDOC ---
History Of Present Illness Patient presents to the ER with a complaint of feeling anxious and palpitation while watching TV. Patient called 911 and took an extradose of her blood pressure medication and lorazepam, which helped her feel better. However, before going to bed patient began feeling anxious again so she decided come in to be evaluated. Denies fever, chills, chest pain, or SOB. Time Seen by Provider: 06/17/17 04:04 Chief Complaint (Nursing): High Blood Pressure History Per: Patient History/Exam Limitations: no limitations Onset/Duration Of Symptoms: Hrs Current Symptoms Are (Timing): Still Present Associated Symptoms: denies: Chest Pain Quality Of Symptoms: Rapid Heart Rate Severity: Mild Pain Scale Rating Of: 3 Exacerbating Factor(s): Pos: None Recent travel outside of the [place]: No Past Medical History Reviewed: Historical Data, Nursing Documentation, Vital Signs Vital Signs: Last Vital Signs Temp 98.3 F 06/17/17 03:13 Pulse 74 06/17/17 03:13 Resp 18 06/17/17 03:13 BP 171/85 H 06/17/17 03:13 Pulse Ox 97 06/17/17 04:56 - Medical History PMH: Anxiety, HTN, Hyperlipidemia, Hypothyroidism Family History: States: No Known Family Hx - Social History Hx Alcohol Use: No Hx Substance Use: No - Immunization History Hx Tetanus Toxoid Vaccination: No Hx Influenza Vaccination: No Hx Pneumococcal Vaccination: No Review Of Systems Constitutional: Negative for: Fever, Chills Cardiovascular: Positive for: Palpitations. Negative for: Chest Pain Respiratory: Negative for: Shortness of Breath Gastrointestinal: Negative for: Nausea, Vomiting Psych: Positive for: Anxiety Physical Exam - Physical Exam Appears: Non-toxic Skin: Warm, Dry Head: Normacephalic Oral Mucosa: Moist Chest: Symmetrical, No Tenderness Cardiovascular: Rhythm Regular Respiratory: No Rales, No Rhonchi, No Wheezing Gastrointestinal/Abdominal: Soft, No Tenderness Neurological/Psych: Oriented x3 ED Course And Treatment - Laboratory Results Result Diagrams: 06/17/17 04:43 06/17/17 04:43 ECG: Interpreted By Me, Viewed By Me ECG Rhythm: Sinus Rhythm (72), Nonspecific Changes O2 Sat by Pulse Oximetry: 97 (Room air) Pulse Ox Interpretation: Normal - Radiology CXR: Interpreted by Me, Viewed By Me CXR Interpretation: No: Infiltrates, Fracture, Pnemothorax Progress Note: Blood work, EKG, CXR, and urinalysis ordered. Reevaluation Time: 05:14 Reassessment Condition: Improved Disposition Counseled Patient/Family Regarding: Studies Performed, Diagnosis, Need For Followup - Disposition Referrals: Bro Aguila MD [Staff Provider] - Disposition: HOME/ ROUTINE Disposition Time: 04:04 Condition: FAIR Instructions: Anxiety, Adult (DC) Forms: [employer]aton (Uzbek) - Clinical Impression Clinical Impression: Anxiety - Scribe Statement The provider has reviewed the documentation as recorded by the Scribdelvin Anand All medical record entries made by the Scribe were at my direction and personally dictated by me. I have reviewed the chart and agree that the record accurately reflects my personal performance of the history, physical exam, medical decision making, and the department course for this patient. I have also personally directed, reviewed, and agree with the discharge instructions and disposition.
[2017-06-17 04:48] LABS: BASO # 0.1 K/uL (0.0-0.2); BASO % 1.1 % (0.0-2.0); EOS # 0.1 K/uL (0.0-0.7); EOS % 1.1 % (0.0-4.0); HEMOGLOBIN 12.9 g/dL (11.0-16.0); LYMPH # 1.8 K/uL (1.0-4.3); LYMPH % 17.3 % (20.0-40.0); MEAN CORPUSCULAR HEMOGLOBIN 27.5 pg (27.0-31.0); MEAN CORPUSCULAR HGB CONC 33.2 g/dL (33.0-37.0); MEAN PLATELET VOLUME 8.2 fL (7.2-11.7); MONO # 0.4 K/uL (0.0-0.8); MONO % 3.6 % (0.0-10.0); NEUT # 7.9 K/uL (1.8-7.0); NEUT % 76.9 % (50.0-75.0); RBC 4.67 Mil/uL (3.80-5.20); RED CELL DISTRIBUTION WIDTH 14.3 % (11.5-14.5); WHITE BLOOD COUNT 10.2 K/uL (4.8-10.8)
[2017-06-17 04:52] LABS: INR 1.1; PROTHROMBIN TIME 12.2 SECONDS (9.7-12.2)
[2017-06-17 04:58] LABS: ALB/GLOB RATIO 0.8 (1.0-2.1); ALT/SGPT 21 U/L (9-52); AST/SGOT 25 U/L (14-36); BLOOD UREA NITROGEN 11 mg/dL (7-17); CALCIUM 9.2 mg/dl (8.6-10.4); GFR AFRICAN-AMERICAN > 60; GFR NON-AFRICAN AMERICAN > 60
[2017-06-17 05:42] VITALS: BP 137/73; PULSE 69; RESP 20; TEMP 97.7; O2SAT 96
--- NOTE | 2017-06-17 08:07 | RAD ---
Chest x-ray single frontal view History: Shortness of breath. Comparison: 09/10/2016 Findings: Mild venous congestion. Top normal heart size. Degenerative changes in the spine and shoulders. Impression: Mild venous congestion.
--- NOTE | 2017-06-17 11:06 | CARD ---
APPROVED REPORT EKG Measurement Heart [id number] ME 152P38 [id number] <Conclusion> Normal sinus rhythm Left axis deviation Abnormal ECG
== END 2017-06-17 05:41 | disposition home or self-care (01) ==
LOC: C.ER 03:04
DX: F41.9 Anxiety disorder, unspecified (principal); I10 Essential (primary) hypertension; E78.5 Hyperlipidemia, unspecified; Z87.891 Personal history of nicotine dependence

== ENCOUNTER 2017-12-17 16:16 | Emergency (ER) | payer MEDICARE ==
--- NOTE | 2017-12-17 17:09 | RAD ---
Date of service: 12/17/2017 PROCEDURE: CHEST RADIOGRAPH, 1 VIEW HISTORY: SOB COMPARISON: 06/17/2017 FINDINGS: LUNGS: Clear. PLEURA: No pneumothorax or pleural fluid seen. CARDIOVASCULAR: No radiographic findings to suggest acute or significant cardiovascular disease. OSSEOUS STRUCTURES: No significant abnormalities. VISUALIZED UPPER ABDOMEN: Normal. OTHER FINDINGS: None. IMPRESSION: No active disease.No significant interval change compared to the prior examination(s).
[2017-12-17 17:13] LABS: BLOOD UREA NITROGEN 13 mg/dL (7-17); CALCIUM 9.6 mg/dl (8.6-10.4); GFR NON-AFRICAN AMERICAN > 60
[2017-12-17 17:14] LABS: ALB/GLOB RATIO 0.9 (1.0-2.1); ALBUMIN 4.4 g/dL (3.5-5.0); ALT/SGPT 20 U/L (9-52); AST/SGOT 39 U/L (14-36); BASO # 0.1 K/uL (0.0-0.2); BASO % 0.8 % (0.0-2.0); EOS # 0.1 K/uL (0.0-0.7); EOS % 0.7 % (0.0-4.0); HEMOGLOBIN 13.7 g/dL (11.0-16.0); LYMPH # 1.7 K/uL (1.0-4.3); LYMPH % 17.4 % (20.0-40.0); MEAN CELL VOLUME 82.4 fL (81.0-99.0); MEAN CORPUSCULAR HEMOGLOBIN 27.6 pg (27.0-31.0); MEAN CORPUSCULAR HGB CONC 33.5 g/dL (33.0-37.0); MEAN PLATELET VOLUME 8.5 fL (7.2-11.7); MONO # 0.4 K/uL (0.0-0.8); MONO % 4.3 % (0.0-10.0); NEUT # 7.4 K/uL (1.8-7.0); NEUT % 76.8 % (50.0-75.0); RBC 4.97 Mil/uL (3.80-5.20); RED CELL DISTRIBUTION WIDTH 13.9 % (11.5-14.5); WHITE BLOOD COUNT 9.6 K/uL (4.8-10.8)
[2017-12-17 18:15] LABS: SQUAMOUS EPITHIAL 2 /hpf (0-5); URINE BACTERIA MANY (<OCC); URINE BILIRUBIN NEGATIVE (NEGATIVE); URINE BLOOD NEGATIVE (NEGATIVE); URINE CLARITY Clear (Clear); URINE COLOR Straw (YELLOW); URINE GLUCOSE (UA) NORMAL (Normal); URINE LEUKOCYTE ESTERASE 1+ Leu/uL (Negative); URINE PROTEIN NEGATIVE (NEGATIVE); URINE UROBILINOGEN NORMAL mg/dL (0.2-1.0)
[2017-12-17 18:46] LABS: BARBITURATES, UR NEGATIVE (NEGATIVE); BENZODIAZEPINES, UR NEGATIVE (NEGATIVE); OPIATES, UR NEGATIVE (NEGATIVE); PHENCYCLIDINE, UR NEGATIVE (NEGATIVE)
--- NOTE | 2017-12-17 18:48 | C.PDOC ---
History Of Present Illness 62 y/o female, w/PMhx of anxiety presents to the ER complaining of occasional palpitations. Patient states that this is not consistent with her history of anxiety. Patient reports that she usually takes Ativan 0.5 mg QD or BID. Denies history of ETOH and other substance abuse. Time Seen by Provider: 12/17/17 16:36 Chief Complaint (Nursing): Palpitations History Per: Patient History/Exam Limitations: no limitations Onset/Duration Of Symptoms: Days Current Symptoms Are (Timing): Still Present Severity: Moderate Past Medical History Reviewed: Historical Data, Nursing Documentation, Vital Signs Vital Signs: Last Vital Signs Temp 98.4 F 12/17/17 16:23 Pulse 94 H 12/17/17 18:35 Resp 20 12/17/17 18:35 BP 151/94 H 12/17/17 18:35 Pulse Ox 96 12/17/17 18:35 - Medical History PMH: Anxiety, HTN, Hyperlipidemia, Hypothyroidism Other Surgeries: Hx of surgeries Family History: States: No Known Family Hx - Social History Hx Alcohol Use: No Hx Substance Use: No - Immunization History Hx Tetanus Toxoid Vaccination: No Hx Influenza Vaccination: No Hx Pneumococcal Vaccination: No Review Of Systems Except As Marked, All Systems Reviewed And Found Negative. Constitutional: Negative for: Fever, Chills Cardiovascular: Positive for: Palpitations. Negative for: Chest Pain Respiratory: Negative for: Shortness of Breath Physical Exam - Physical Exam Appears: Non-toxic, No Acute Distress, Other (obese white female, odd effect) Skin: Normal Color, Warm, Dry Head: Atraumatic, Normacephalic Eye(s): bilateral: Normal Inspection Nose: Normal Oral Mucosa: Moist Neck: Supple Cardiovascular: Rhythm Irregular (tachycardiac) Respiratory: Normal Breath Sounds, No Rales, No Rhonchi, No Wheezing Gastrointestinal/Abdominal: Normal Exam, Soft, No Tenderness, No Guarding, No Rebound Extremity: Normal ROM, No Pedal Edema Neurological/Psych: Oriented x3, Normal Speech ED Course And Treatment - Laboratory Results Result Diagrams: 12/17/17 16:57 12/17/17 16:57 Lab Interpretation: Abnormal (QHCG 576 H) ECG: Interpreted By Vt ECG Rhythm: Sinus Tachycardia ECG Interpretation: Normal Rate From EC O2 Sat by Pulse Oximetry: 96 (RA) Pulse Ox Interpretation: Normal - Radiology CXR: Interpreted by Me CXR Interpretation: Yes: No Acute Disease Reevaluation Time: 19:42 Reassessment Condition: Improved Medical Decision Making Medical Decision Making: Plan: --Labs --UA --CT -Angio Chest --Ativan PO --Lopressor PO HR controlled with lopressor and Ativan suspect benzo w/d or anxiety d-dimer elevated, CTA for PE study NEG Disposition Doctor Will See Patient In The: Office Counseled Patient/Family Regarding: Studies Performed, Diagnosis - Disposition Disposition: HOME/ ROUTINE Disposition Time: 19:43 Condition: GOOD Forms: [employer] (Albanian) - Clinical Impression Clinical Impression: Anxiety, Benzodiazepine withdrawal - Scribe Statement The provider has reviewed the documentation as recorded by the Nick Ramos Provider Attestation: All medical record entries made by the Floresibe were at my direction and personally dictated by me. I have reviewed the chart and agree that the record accurately reflects my personal performance of the history, physical exam, medical decision making, and the department course for this patient. I have also personally directed, reviewed, and agree with the discharge instructions and disposition.
[2017-12-17] MEDS ORDERED: Iodixanol 320 MG/ML 100 ML BOTTLE IV ONE (18:52)
[2017-12-17 19:42] VITALS: BP 155/89; PULSE 92; RESP 24
[2017-12-17 19:43] VITALS: O2SAT 96
[2017-12-17 19:52] VITALS: TEMP 99.3
--- NOTE | 2017-12-18 11:07 | CT ---
Date of service: 12/17/2017 PROCEDURE: CT Chest with contrast (Pulmonary Angiogram) HISTORY: tachy, elev d-dimer COMPARISON: Correlation made with chest radiograph earlier same day. TECHNIQUE: Contiguous helical/transaxial computed tomography images were obtained of the chest in the pulmonary arterial phase of enhancement. Coronal and sagittal reformatted images were created and reviewed. Intravenous contrast dose: 100 cc Visipaque 320 Radiation dose: Total exam DLP = 438.11 mGy-cm. This CT exam was performed using one or more of the following dose reduction techniques: Automated exposure control, adjustment of the mA and/or kV according to patient size, and/or use of iterative reconstruction technique... FINDINGS: PULMONARY ARTERIES: The visualized pulmonary trunk, right and left main, lobar, segmental and proximal subsegmental branches of the pulmonary arteries are well opacified with no definitive filling defects seen to suggest acute central pulmonary embolus. Pulmonary trunk measures approximately 2.5 cm. AORTA: No acute findings. No thoracic aortic aneurysm. Ascending thoracic aorta measures approximately 2.8 cm and descending thoracic aorta measures approximately 2.4 cm. LUNGS: Mild passive/dependent type atelectasis both posterior lower lung best. Linear chronic scarring changes superior aspect left lower lobe as well as left lingular region. PLEURAL SPACES: Unremarkable. No effusion or pneumothorax. HEART: Heart size is the within range of normal. No significant pericardial effusion. . LYMPH NODES: Few small nonspecific mediastinal lymph nodes are present. No significant hilar adenopathy. Central airways midline and patent. No large central endoluminal lesions. BONES, CHEST WALL: Minor multilevel degenerative spondylosis of the thoracic spine. No acute compression fractures no retropulsed fragments. OTHER FINDINGS: Unremarkable. IMPRESSION: No evidence of acute central pulmonary embolus.
--- NOTE | 2017-12-19 22:01 | CARD ---
APPROVED REPORT Date of service: 12/17/2017 EKG Measurement Heart [id number] <Conclusion> Sinus tachycardia Possible Left atrial enlargement Left anterior fascicular block Possible Lateral infarct, age undetermined Abnormal ECG
== END 2017-12-17 20:01 | disposition home or self-care (01) ==
LOC: C.ER 16:16
DX: F41.9 Anxiety disorder, unspecified (principal); F13.239 Sedative, hypnotic or anxiolytic dependence with withdrawal, unspecified; I10 Essential (primary) hypertension; E78.5 Hyperlipidemia, unspecified; E03.9 Hypothyroidism, unspecified
CPT/HCPCS: 71045; 71275; 80053; 80320; 80324; 80345; 80346; 80349; 80353; 80358; 80361; 81001; 83992; 84484; 85025; 85378; 93005; 99285; Q9967

== ENCOUNTER 2018-07-03 14:02 | Emergency (ER) | payer MEDICARE ==
[2018-07-03 15:06] VITALS: BMI 31.9
[2018-07-03 15:15] VITALS: TEMP 98.7; O2SAT 98
--- NOTE | 2018-07-03 17:05 | C.PDOC ---
History Of Present Illness 63 year old female presents to ED with complaint of intermittent numbness to her left leg that lasts about a minute and a half. Patient states that the numbness is to her calf area mostly and that it radiates to her toes. Patient describes it as a "tingling sensation." She has a history of varicose veins. Patient denies weakness, pain, and trauma. Time Seen by Provider: 07/03/18 16:22 Chief Complaint (Nursing): Lower Extremity Problem/Injury History Per: Patient History/Exam Limitations: no limitations Onset/Duration Of Symptoms: Intermittent Episodes, Unknown Current Symptoms Are (Timing): Still Present Past Medical History Reviewed: Historical Data, Nursing Documentation, Vital Signs Vital Signs: Last Vital Signs Temp 98.7 F 07/03/18 15:10 Pulse 66 07/03/18 15:10 Resp 17 07/03/18 15:10 BP 151/87 H 07/03/18 15:10 Pulse Ox 98 07/03/18 15:10 - Medical History PMH: Anxiety, HTN, Hypercholesterolemia, Hyperlipidemia, Hypothyroidism Surgical History: No Surg Hx Family History: States: Unknown Family Hx - Social History Hx Alcohol Use: No Hx Substance Use: No - Immunization History Hx Tetanus Toxoid Vaccination: No Hx Influenza Vaccination: No Hx Pneumococcal Vaccination: No Review Of Systems Constitutional: Negative for: Weakness Musculoskeletal: Negative for: Leg Pain Neurological: Positive for: Numbness (bilateral feet and ankles). Negative for: Weakness Physical Exam - Physical Exam Appears: Non-toxic, No Acute Distress Skin: Normal Color, Warm, Dry Head: Atraumatic, Normacephalic Neck: Normal ROM, Supple Chest: Symmetrical, No Deformity Respiratory: No Accessory Muscle Use Extremity: Tenderness (slight tenderness to the left calf ), Capillary Refill (<2 seconds), Other (+1 pitting edema to the bilateral lower extremities ) Pulses: Left Dorsalis Pedis: Normal, Right Dorsalis Pedis: Normal Neurological/Psych: Oriented x3, Normal Speech, Normal Cognition ED Course And Treatment - Laboratory Results Result Diagrams: 07/03/18 17:10 07/03/18 17:10 O2 Sat by Pulse Oximetry: 98 (in RA) Medical Decision Making Medical Decision Making: Plan: Labs ordered with CMP, CBC, and d-dimer Disposition - Disposition Referrals: Bro Aguila MD [Staff Provider] - Disposition: HOME/ ROUTINE Disposition Time: 18:57 Condition: GOOD Additional Instructions: COME TOMORROW AT 8AM FOR VENOUS DOPPLER OF THE BILATERAL LOWER EXTREMITY. D-DIM ER WAS (+) RETURN SOONER IF WORSENED. 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 (Scarlet Nugent) - Scribe Statement The provider has reviewed the documentation as recorded by the Scribe (Scarlet Nugent) All medical record entries made by the Scribe were at my direction and personally dictated by me. I have reviewed the chart and agree that the record accurately reflects my personal performance of the history, physical exam, [facility] decision making, and the department course for this patient. I have also personally directed, reviewed, and agree with the discharge instructions and disposition.
[2018-07-03 17:31] LABS: BASO % 0.6 % (0.0-2.0); EOS # 0.1 K/uL (0.0-0.7); HEMOGLOBIN 13.3 g/dL (11.0-16.0); LYMPH # 1.8 K/uL (1.0-4.3); LYMPH % 22.9 % (20.0-40.0); MEAN CELL VOLUME 84.1 fL (81.0-99.0); MEAN CORPUSCULAR HEMOGLOBIN 28.5 pg (27.0-31.0); MEAN CORPUSCULAR HGB CONC 33.9 g/dL (33.0-37.0); MEAN PLATELET VOLUME 8.5 fL (7.2-11.7); MONO # 0.4 K/uL (0.0-0.8); MONO % 5.3 % (0.0-10.0); NEUT # 5.5 K/uL (1.8-7.0); NEUT % 70.2 % (50.0-75.0); RBC 4.67 Mil/uL (3.80-5.20); RED CELL DISTRIBUTION WIDTH 13.2 % (11.5-14.5); WHITE BLOOD COUNT 7.8 K/uL (4.8-10.8)
[2018-07-03 17:41] LABS: INR 1.1; PROTHROMBIN TIME 11.5 SECONDS (9.7-12.2)
[2018-07-03 17:50] LABS: ALB/GLOB RATIO 1.1 (1.0-2.1); ALBUMIN 4.3 g/dL (3.5-5.0); ALT/SGPT 11 U/L (9-52); AST/SGOT 23 U/L (14-36); BLOOD UREA NITROGEN 17 mg/dL (7-17); CALCIUM 9.9 mg/dl (8.6-10.4); GFR NON-AFRICAN AMERICAN > 60
[2018-07-03 18:03] VITALS: BP 133/84; PULSE 62; RESP 18
[2018-07-03] MEDS ORDERED: Enoxaparin 80 mg Syringe SC STA (18:34)
[2018-07-03] MEDS ORDERED: Enoxaparin 80 mg Syringe ONE (18:41)
== END 2018-07-03 19:16 | disposition home or self-care (01) ==
LOC: C.ER 14:02
DX: R60.0 Localized edema (principal); E78.00 Pure hypercholesterolemia, unspecified; I10 Essential (primary) hypertension; E03.9 Hypothyroidism, unspecified; E78.5 Hyperlipidemia, unspecified
CPT/HCPCS: 80053; 85025; 85378; 85610; 85730; 96372; 99284; J1650